=== PATIENT | female | born 1985 | race African-American/Black ===

== ENCOUNTER 2019-03-14 11:57 | Emergency (ER) | payer SELFPAY ==
[~2019-03-14] VITALS: Ht 167.6 cm; Wt 110.0 kg
[2019-03-14 11:59] VITALS: BP 132/86
== END 2019-03-14 14:23 | disposition left against medical advice (07) ==
LOC: ER 11:57
DX: Z53.21 Procedure and treatment not carried out due to patient leaving prior to being seen by health care provider (principal)